=== PATIENT | male | born 1950 ===

== ENCOUNTER 2020-07-25 08:05 | Emergency (ER) | payer OTHER ==
[~2020-07-25] VITALS: Ht 170.2 cm; Wt 77.1 kg
[2020-07-25] MEDS ORDERED: ALPRAZOLAM2 MG PO (08:17)
[2020-07-25] MEDS ORDERED: FINASTERIDE5 MG PO (08:17)
[2020-07-25] MEDS ORDERED: TAMSULOSIN HCL0.4 MG PO (08:17)
[2020-07-25] MEDS ORDERED: VASOTEC20 MG PO (08:18)
[2020-07-25] MEDS ORDERED: FERROUS SULFAT325 MG PO (08:18)
[2020-07-25] MEDS ORDERED: INTESTINEX680 M1 PO (12:39)
== END 2020-07-25 13:21 | disposition home or self-care (01) ==
LOC: ER 08:05
DX: E86.0 Dehydration (principal); R11.2 Nausea with vomiting, unspecified; R10.13 Epigastric pain; Z03.818 Encounter for observation for suspected exposure to other biological agents ruled out

== ENCOUNTER 2021-06-08 12:57 | Emergency (ER) | payer OTHER ==
[~2021-06-08] VITALS: Ht 170.2 cm; Wt 79.4 kg
[~2021-06-08 12:57] MED LIST: ALPRAZOLAM2 MG PO; FERROUS SULFAT325 MG PO; FINASTERIDE5 MG PO; INTESTINEX680 M1 PO; TAMSULOSIN HCL0.4 MG PO; VASOTEC20 MG PO
== END 2021-06-08 19:51 | disposition home or self-care (01) ==
LOC: ER 12:57
DX: S93.401A Sprain of unspecified ligament of right ankle, initial encounter (principal); W12.XXXA Fall on and from scaffolding, initial encounter; Y93.9 Activity, unspecified; Y92.9 Unspecified place or not applicable